=== PATIENT | male | born 1990 | race Caucasian/White ===

== ENCOUNTER 2017-01-14 06:39 | Day surgery (SDC) | payer BC ==
[2017-01-08 15:21] LABS: BASOPHILS 0.3 %; BASOPHILS ABSOLUTE 0.02 10/3/uL (0.0-0.16); EOSINOPHILS 2.9 %; EOSINOPHILS ABSOLUTE 0.23 10/3/uL (0.0-0.53); HEMATOCRIT 44.7 % (40.0-51.0); HEMOGLOBIN 15.4 g/dL (13.6-17.8); IMMATURE GRANULOCYTES 0.3 %; IMMATURE GRANULOCYTES ABSOLUTE 0.02 10/3/uL (0.0-0.11); LYMPHOCYTES 31.1 %; LYMPHOCYTES ABSOLUTE 2.49 10/3/uL (0.67-4.30); MEAN CORPUS HGB CONC 34.5 g/dL (32.0-36.0); MEAN CORPUSCULAR HEMOGLOB 29.4 pg (26.0-34.0); MEAN CORPUSCULAR VOLUME 85.5 fL (80-100); MEAN PLATELET VOLUME 11.4 fL (9.2-13.0); MONOCYTES 6.8 %; MONOCYTES ABSOLUTE 0.54 10/3/uL (0.21-1.20); NEUTROPHILS 58.6 %; PLATELET COUNT 254 10/3/uL (150-400); RBC DISTRIBUTION WIDTH 12.6 % (12.0-16.0); RED CELL COUNT 5.23 10/6/uL (4.7-6.1)
[2017-01-08 15:24] LABS: MANUAL DIFF NO %
[2017-01-08 15:42] LABS: A/G RATIO 1.3 (0.7-1.9); ALBUMIN 4.6 G/DL (3.5-5.0); BUN (BLOOD UREA NITROGEN) 15 MG/DL (6-23); CALCIUM, SERUM 9.1 MG/DL (8.5-10.4); CHLORIDE, SERUM 106 MMOL/L (96-112); CO2 (CARBON DIOXIDE) 30 MMOL/L (24-34); CREATININE 1.15 MG/DL (0.70-1.30); GFR AFRICAN AMERICAN 103 ML/MIN (>=60); GFR NON AFRICAN AMERICAN 89 ML/MIN (>=60); GLOBULIN 3.6 G/DL (2.5-4.1); GLUCOSE, SERUM 80 MG/DL (60-99); POTASSIUM, SERUM 3.5 MMOL/L (3.5-5.3); SGOT(AST) 18 U/L (5-40); SGPT(ALT) 19 U/L (5-65); SODIUM, SERUM 142 MMOL/L (135-148); TOTAL BILIRUBIN 0.8 MG/DL (0-1.2); TOTAL PROTEIN 8.2 G/DL (6.0-8.5)
[2017-01-08 15:43] LABS: ALKALINE PHOSPHATASE 73 U/L (45-117)
--- NOTE | ~2017-01-14 | OP ---
Record Of Operation [facility] [address] [place]. [address] NAME: BERNARD DICK : 89 STATUS : REG [facility] PAT#: [id number] AGE: 26 ADM/REG DATE : 01/14/17 MR#: [id number] REPORT SERV DATE: 01/14/17 DICTATED BY: DAMIAN POLO III DATE: 01/14/17 REPORT STATUS : Draft TRANSCRIBED BY: MODL DATE: 01/14/17 DATE OF PROCEDURE: 01/14/2017 PREOPERATIVE DIAGNOSIS: Symptomatic cholelithiasis and cholecystitis. POSTOPERATIVE DIAGNOSIS: Symptomatic cholelithiasis and cholecystitis. PROCEDURE: Laparoscopic cholecystectomy. SURGEON: Damian Polo M.D. ANESTHESIA: General with intubation. COMPLICATIONS: None. ESTIMATED BLOOD LOSS: Less than 30 mL. SPECIMENS: Gallbladder. DRAINS: None. LAP AND SPONGE COUNT: Correct x3. BRIEF HISTORY: This 26-year-old male presented with evidence for symptomatic cholelithiasis or sludge and cholecystitis. It was felt that laparoscopic cholecystectomy, possible laparotomy, was indicated. This procedure, the risks, benefits, and alternatives, including but not limited to the risk for bleeding, infection, common bile duct injury, bile leak, retained common bile duct stone, enterotomy, or injury to any abdominal structure, the definite possible need for laparotomy, possible persistence of his symptoms unrelieved by surgery, possibility of postoperative diarrhea or incisional hernia, and unforeseen complications including deep venous thrombosis, pulmonary embolus, myocardial infarction, stroke, pneumonia, and , were fully and completely explained to the patient and family prior to surgery. The fact that this was a major operation with risk for major morbidity and mortality, no guarantee for relief of his symptoms were explained to them. The expected length of recovery with both and open laparoscopic procedures was explained. The patient and family had questions which were answered. They fully understood the risks and agreed to the surgery as planned. FINDINGS: The patient's gallbladder shahid were thickened and inflamed. The gallbladder was distended with adhesions between the gallbladder and the omentum consistent with cholecystitis. The liver and remainder of the upper abdomen were otherwise unremarkable as far as we could determine through the laparoscope. PROCEDURE: After being appropriately identified and after discussing the risks of surgery with the patient and his family in the preoperative area, the patient was taken to the operating room and placed in the supine position on the operating room table. General Record Of Operation [facility] [address] [place]. [address] NAME: BERNARD IDCK : 89 STATUS : REG [facility] PAT#: [id number] AGE: 26 ADM/REG DATE : 01/14/17 MR#: [id number] REPORT SERV DATE: 01/14/17 DICTATED BY: DAMIAN POLO III DATE: 01/14/17 REPORT STATUS : Draft TRANSCRIBED BY: CINTIA DATE: 01/14/17 anesthesia was administered. He was intubated without difficulty. The abdomen was prepped and draped sterilely in the usual fashion. After an appropriate "time-out" per [facility] standards, a small transverse incision was made below the umbilicus. The skin and fascia on either side was elevated with towel clips. A Veress needle was placed through the incision into the peritoneal cavity. Correct position of the needle in the peritoneal cavity was confirmed by the hanging drop test. The abdominal cavity was then insufflated to about 13 mmHg with carbon dioxide. Correct position of air in the peritoneal cavity was confirmed by palpation. The Veress needle was removed and replaced with 10-mm trocar. The laparoscope was placed through this. The patient was placed in the reverse Trendelenburg position and to his left. A second 10-mm trocar was placed just below the xiphoid process, to the right of the falciform ligament, under direct vision with the laparoscope. Two 5-mm trocars were placed along the right subcostal margin, one in the midaxillary line, the other in the midclavicular line. These were also placed under direct vision with the laparoscope. The upper abdomen was inspected. The gallbladder appeared to be chronically diseased. The gallbladder shahid were thickened and inflamed consistent chronic cholecystitis. The liver and remainder of the upper abdomen were otherwise unremarkable as far as we could determine through the laparoscope. The appropriate instruments were placed through the trocars. The gallbladder was grasped and the infundibulum of the gallbladder was retracted laterally and inferiorly so as to expose the triangle of Calot. Using careful sharp and blunt dissection, the cystic duct was carefully and meticulously defined proximally and distally. The cystic duct was fairly long. The junction of the cystic duct with the common bile duct was appreciated, but not skeletonized. The cystic artery was similarly defined proximally and distally. The fibrous and fatty tissue between these structures was divided so as to clearly identify the critical angle. Once these structures were clearly defined, the cystic duct was clipped using two clips on the common bile duct side and one on the gallbladder side, all placed as close to the gallbladder as possible, taking care not encroach upon or injure the common bile duct in any way. The cystic duct was then divided between these clips as close to the gallbladder as possible. We elected not to perform a cholangiogram because there was no preoperative or intraoperative evidence for biliary dilatation and because the patient's preoperative liver enzymes were normal and because his biliary anatomy was clearly defined. Again, the structure was not divided or clipped until the critical angle and triangle of Calot had been clearly identified. The cystic artery was then similarly clipped and divided as close to the gallbladder as possible. Using the spatula and the cautery, the gallbladder was carefully dissected from the liver bed. This went very well. Before the gallbladder was completely removed, the gallbladder bed and portal areas were irrigated numerous times with saline. The saline was aspirated dry. This process was repeated several times until hemostasis was meticulously and thoroughly assured in all areas. It was also assured that the clips in the portal areas were in good position and there was no extravasation of bile from any accessory bile duct. Once this was assured, the gallbladder was completely dissected away from the liver and placed in the Endopouch. The liver bed was elevated, irrigated, and inspected for meticulous and thorough hemostasis and for absence of any biliary extravasation and to be certain that the clips were in good position. Once this was assured, the gallbladder and Endopouch were brought out through the infraumbilical incision and placed in the laparoscope through the subxiphoid port. The fascia of the infraumbilical incision was closed with 0 Vicryl suture. The lateral two trocars were removed. These two lower trocar sites were inspected on the underside for hemostasis with the laparoscope. Once this was assured, the subxiphoid trocar was removed Record Of Operation [facility] [address] [facility] [place]. [address] NAME: BERNARD DICK : 89 STATUS : [facility] PAT#: [id number] AGE: 26 ADM/REG DATE : 01/14/17 MR#: [id number] REPORT SERV DATE: 01/14/17 DICTATED BY: DAMIAN POLO III DATE: 01/14/17 REPORT STATUS : Draft TRANSCRIBED BY: CINTIA DATE: 01/14/17 under direct vision with the laparoscope to assure hemostasis in this incision. The air was removed from the peritoneal cavity through this incision. The skin incisions were inspected for hemostasis, they were closed with running subcuticular 4-0 Monocryl stitches. They were injected with one-half percent Marcaine. Dressings were applied. Anesthesia was reversed and the patient was taken to the recovery room in stable condition. The patient tolerated the procedure well. His family was informed of the results of surgery. The patient was discharged later when he was stable, comfortable and tolerating liquids and able to void and ambulate. His family was advised that he should remain on a liquid diet today and advance this as tolerated to a regular diet tomorrow. He should keep wounds clean and dry for 48 hours and that he should not drive for 3-4 days after surgery or while using narcotics or Phenergan. They were advised that he should resume his usual medications. He was given a prescription for a narcotic and Phenergan, which he was advised to not take while driving. THOMAS/CINTIA Damian Polo III, M.D. / [id number] CC: Damian Polo III, M.D.
--- NOTE | ~2017-01-14 | PREOPHP ---
PreOp History and Physical [facility] [address] [place]. [address] NAME: BERNARD DICK : 89 STATUS : PRE [facility] PAT#: [id number] AGE: 26 ADM/REG DATE : MR#: [id number] REPORT SERV DATE: 01/13/17 DICTATED BY: DAMIAN POLO III DATE: 12/23/16 REPORT STATUS : Draft TRANSCRIBED BY: MODMckayla DATE: 12/23/16 HISTORY OF PRESENT ILLNESS: This is a 26-year-old male who comes to the operating room for laparoscopic cholecystectomy, possible laparotomy, for symptomatic cholelithiasis and cholecystitis. The patient complains of one-year history of intermittent episodes of epigastric abdominal pain. Each episode is associated with nausea and vomiting. The patient has had multiple episodes of biliary colic, requiring evaluation in the emergency room. His gallbladder ultrasound shows sludge. He comes to the operating room now for laparoscopic cholecystectomy, possible laparotomy. MEDICATIONS: None regularly. PAST MEDICAL HISTORY: Otherwise unremarkable. ALLERGIES: NONE. REVIEW OF SYSTEMS: The patient's 14-point review of systems is otherwise unremarkable. FAMILY HISTORY: Remarkable for breast cancer. SOCIAL HISTORY: No history of tobacco or alcohol use. PHYSICAL EXAMINATION: GENERAL: This is a male, in no acute distress. He is alert and oriented x3. VITAL SIGNS: Blood pressure 126/77, pulse 69, temperature 97.1. HEENT: Unremarkable. NEURO: Cranial nerves 2 through 12 were normal. LUNGS: Clear. CARDIAC: Normal. ABDOMEN: Soft and nontender. LABORATORY DATA: Gallbladder ultrasound confirms biliary sludge in the gallbladder. ASSESSMENT: A 26-year-old male with symptomatic cholelithiasis, cholecystitis, and recurrent episodes of biliary colic. PLAN: The patient comes to the operating room now for laparoscopic cholecystectomy, possible laparotomy. This procedure, the risks, benefits, and alternatives, including not limited to the risk for bleeding, infection, common bile duct injury, bile leak, retained common bile duct stone, enterotomy, or injury to any abdominal structures, the definite/possible need for laparotomy, the possible persistence of his symptoms unrelieved by surgery, possibility of postoperative diarrhea or incisional hernia, and unforeseen complications including deep venous thrombosis, pulmonary embolus, myocardial infarction, stroke, pneumonia, and , have been fully and completely explained to the patient at length prior to surgery. His questions have been answered. He clearly understands the risks and agrees to surgery as planned. PreOp History and Physical [address] [place] [address] NAME: BERNARD DICK : 89 STATUS : PRE [facility] PAT#: [id number] AGE: 26 ADM/REG DATE : MR#: [id number] REPORT SERV DATE: 01/13/17 DICTATED BY: DAMIAN POLO III DATE: 12/23/16 REPORT STATUS : Draft TRANSCRIBED BY: CINTIA DATE: 12/23/16 Karon/CINTIA Damian Polo III, M.D. / [id number]
[~2017-01-14 06:39] MED LIST: BEN25 PO; NAUZENE PO; NORCO1 TA1 PO; PEPTO-BISMOL TA1 TAB PO; PR25 PO
[2017-01-14 12:04] LABS: HEMATOCRIT 40.9 % (40.0-51.0); HEMOGLOBIN 14.4 g/dL (13.6-17.8)
== END 2017-01-14 13:45 | disposition home or self-care (01) ==
LOC: SDC 06:39
PROVIDERS: Surgery
PROC: 0FT44ZZ Resection of Gallbladder, Percutaneous Endoscopic Approach (ICD-10-PCS; principal; 2017-01-14 07:45)
DX: K81.1 Chronic cholecystitis (principal); Z79.899 Other long term (current) drug therapy; Z90.89 Acquired absence of other organs; Z98.890 Other specified postprocedural states
CPT/HCPCS: 71020; 80053; 85014; 85018; 85025; 88304; 93005; A9270-GY; J0690; J1170; J1885; J2250; J2405; J2710; J3010